=== PATIENT | male | born 1960 | race African-American/Black ===

== ENCOUNTER 2020-02-22 17:31 | Observation (INO) ==
[2020-02-22 18:02] LABS: Basophils % 0.3 % (0.0-0.8); Eosinophils # 0.2 10*3/uL (0.0-0.87); Eosinophils % 2.3 % (0.00-10.9); Hematocrit 43.6 VOL% (42.0-52.0); Hemoglobin 14.7 GM/DL (14.0-18.0); Immature Granulocytes % 0.2 %; Immature Granulocytes Absolute 0.02 #; Lymphocytes # 4.6 10*3/uL (1.4-4.0); Lymphocytes % 50.4 % (21.2-54.2); Mean Corpuscular HGB Conc 33.7 GM/DL (32-36); Mean Platelet Volume 9.7 FL (9.6-12.0); Monocytes # 0.8 10*3/uL (0.11-0.8); Monocytes % 8.9 % (1.7-12.7); Neutrophils % 37.9 % (38.7-73.9); Platelet Count 308 T/CUMM (130-400); Red Blood Count 5.01 MC/CUMM (3.8-5.5); Red Cell Distribution Width 13.3 % (9.3-17.3)
[2020-02-22] MEDS ORDERED: ASPIRIN 325 MG TABLET PO STA (18:05)
[2020-02-22 18:18] LABS: Eosinophils 6 % (0-10); Lymphocytes 59 % (20-55); PT Patient Result 10.5 SECS (9.8-11.9); Platelet Estimate Normal; Total Cells Counted 100
[2020-02-22 18:19] LABS: Atypical Lymphocytes SLIGHT
[2020-02-22 18:25] LABS: Alanine Aminotransferase 97 U/L (16-61); Albumin 3.9 G/DL (3.4-5.0); Alkaline Phosphatase 106 U/L (45-117); Aspartate Amino Transferase 77 U/L (0-37); Bilirubin,Total < 0.39 MG/DL (0.2-1.0); Blood Urea Nitrogen 12 MG/DL (7-18); Calcium 9.4 MG/DL (8.5-10.1); Carbon Dioxide 28 MMOL/L (21-32); Chloride 106 MMOL/L (98-107); Estimated Glom Filtration Rate 92 ML/MIN; Glucose 105 MG/DL (74-106); Osmolality,Calculated 278.4 MOS/KG (273-304); Potassium 3.3 MMOL/L (3.5-5.1); Sodium 140 MMOL/L (136-145); Total Protein 7.9 G/DL (6.4-8.3)
[2020-02-22] MEDS ORDERED: ENOXAPARIN 80 MG/0.8 ML SYRINGE SUBCUT STA (18:43)
[2020-02-22] MEDS ORDERED: MORPHINE 4 MG/1 ML VIAL IV PRN (18:54)
[2020-02-22] MEDS ORDERED: ONDANSETRON 4 MG/2 ML VIAL IV PRN (18:54)
[2020-02-22] MEDS ORDERED: DEXTROSE 50% 25 GM/50 ML VIAL IV PRN (18:54)
[2020-02-22] MEDS ORDERED: GLUCAGON 1 MG VIAL IM PRN (18:54)
[2020-02-22] MEDS ORDERED: ZALEPLON 5 MG CAPSULE PO PRN (18:54)
[2020-02-22] MEDS ORDERED: POTASSIUM CHLORIDE 20 MEQ TABLET PO STA (19:04)
[2020-02-22] MEDS ORDERED: DEXTROSE 50% 25 GM/50 ML SYRINGE IV PRN (19:12)
[2020-02-23 00:43] LABS: Basophils % 0.4 % (0.0-0.8); Eosinophils # 0.1 10*3/uL (0.0-0.87); Eosinophils % 1.3 % (0.00-10.9); Hematocrit 41.2 VOL% (42.0-52.0); Hemoglobin 14.1 GM/DL (14.0-18.0); Immature Granulocytes % 0.3 %; Immature Granulocytes Absolute 0.02 #; Lymphocytes # 2.3 10*3/uL (1.4-4.0); Lymphocytes % 32.3 % (21.2-54.2); Mean Corpuscular HGB Conc 34.2 GM/DL (32-36); Mean Corpuscular Volume 86.9 FL (87-102); Mean Platelet Volume 9.6 FL (9.6-12.0); Monocytes # 0.4 10*3/uL (0.11-0.8); Monocytes % 5.8 % (1.7-12.7); Neutrophils % 59.9 % (38.7-73.9); Platelet Count 290 T/CUMM (130-400); Red Blood Count 4.74 MC/CUMM (3.8-5.5); Red Cell Distribution Width 13.3 % (9.3-17.3); White Blood Count 7.1 T/CUMM (4-12)
[2020-02-23 01:01] LABS: Albumin 3.5 G/DL (3.4-5.0); Bilirubin,Total 0.6 MG/DL (0.2-1.0); Osmolality,Calculated 282.4 MOS/KG (273-304); Potassium 3.9 MMOL/L (3.5-5.1); Risk Ratio 6.33; Total Protein 7.1 G/DL (6.4-8.3); VLDL Cholesterol 72.2 MG/DL
[2020-02-23] MEDS: NITROGLYCERIN 2% OINT 1 INCH/GM PACK TOP SCH ×4 (01:24→17:29)
[2020-02-23] MEDS: ENOXAPARIN 100 MG/ML SYRINGE SUBCUT SCH ×2 (06:44→18:12)
[2020-02-23 08:18] LABS: Hepatitis B Core IgM Quant 0.06 Index; Hepatitis B Surface Ag Quant < 0.10 Index; Hepatitis B Surface Ag Result Negative (Negative); Hepatitis C Virus Ab Quant < 0.02 Index; Hepatitis C Virus Ab Result Negative (Negative)
[2020-02-23] MEDS ORDERED: ASPIRIN EC 325 MG TABLET PO SCH (09:00)
[2020-02-23] MEDS: ACETAMINOPHEN 325 MG TABLET PO PRN (09:30)
[2020-02-23] MEDS: TAMSULOSIN 0.4 MG CAPSULE PO SCH (09:31)
[2020-02-23] MEDS: PANTOPRAZOLE 40 MG TABLET PO SCH (09:31)
[2020-02-23] MEDS ORDERED: POTASSIUM CHLORIDE RIDER 10 MEQ in PREMIX 1 EACH IV PRN (12:34)
[2020-02-23] MEDS ORDERED: MAGNESIUM SULF RIDER 2 GM in PREMIX 1 EACH IV PRN (12:34)
[2020-02-23] MEDS: carvediloL 3.125 MG TABLET PO SCH (17:26)
[2020-02-23] MEDS: ROSUVASTATIN 20 MG TABLET PO SCH (22:06)
[2020-02-24 00:23] LABS: Barbiturates Screen,Urine Negative (Negative); Opiate Screen,Urine Negative (Negative); Phencyclidine Screen,Urine Negative (Negative)
[2020-02-24 00:24] LABS: Benzodiazepines Screen,Urine Negative (Negative); Cannabinoid Screen,Urine Positive (Negative)
[2020-02-24] MEDS: ACETAMINOPHEN 325 MG TABLET PO PRN (01:33)
[2020-02-24] MEDS: NITROGLYCERIN 2% OINT 1 INCH/GM PACK TOP SCH ×5 (01:33→23:15)
[2020-02-24] MEDS ORDERED: diphenhydrAMINE CAP 25 MG CAPSULE PO ONE (06:00)
[2020-02-24] MEDS ORDERED: DIAZEPAM 5 MG TABLET PO ONE (06:00)
[2020-02-24 06:45] LABS: Basophils # 0.1 10*3/uL (0.0-0.2); Basophils % 0.8 % (0.0-0.8); Eosinophils # 0.2 10*3/uL (0.0-0.87); Eosinophils % 3.6 % (0.00-10.9); Hematocrit 42.2 VOL% (42.0-52.0); Hemoglobin 14.3 GM/DL (14.0-18.0); Immature Granulocytes % 0.3 %; Immature Granulocytes Absolute 0.02 #; Lymphocytes # 2.9 10*3/uL (1.4-4.0); Lymphocytes % 45.3 % (21.2-54.2); Mean Corpuscular HGB Conc 33.9 GM/DL (32-36); Mean Corpuscular Volume 87.6 FL (87-102); Mean Platelet Volume 10.2 FL (9.6-12.0); Monocytes # 0.6 10*3/uL (0.11-0.8); Platelet Count 294 T/CUMM (130-400); Red Blood Count 4.82 MC/CUMM (3.8-5.5); Red Cell Distribution Width 13.6 % (9.3-17.3); White Blood Count 6.3 T/CUMM (4-12)
[2020-02-24 06:58] LABS: Albumin 3.4 G/DL (3.4-5.0); Bilirubin,Direct 0.1 MG/DL (0.0-0.20); Bilirubin,Indirect 0.4 MG/DL (0.0-1.0); Bilirubin,Total 0.5 MG/DL (0.2-1.0); Calcium 8.8 MG/DL (8.5-10.1); Osmolality,Calculated 279.3 MOS/KG (273-304); Potassium 3.8 MMOL/L (3.5-5.1); Total Protein 7.1 G/DL (6.4-8.3)
[2020-02-24] MEDS: SODIUM CHLORIDE 0.45% 1,000 ML IV SCH ×3 (07:44→23:05)
[2020-02-24] MEDS: ENOXAPARIN 100 MG/ML SYRINGE SUBCUT SCH (07:47)
[2020-02-24] MEDS: carvediloL 3.125 MG TABLET PO SCH (07:48)
[2020-02-24] MEDS: PANTOPRAZOLE 40 MG TABLET PO SCH ×2 (07:48→09:51)
[2020-02-24] MEDS: TAMSULOSIN 0.4 MG CAPSULE PO SCH ×2 (07:48→09:51)
[2020-02-24] MEDS ORDERED: LIDOCAINE 1% 20 ML VIAL ONE (08:37)
[2020-02-24] MEDS ORDERED: NITROGLYCERIN DRIP 50 MG/250 ML BOTTLE IV ONE (08:41)
[2020-02-24] MEDS ORDERED: HYDROmorphone 2 MG/1 ML VIAL ONE (08:41)
[2020-02-24] MEDS ORDERED: MIDAZOLAM 2 MG/2 ML VIAL ONE (08:42)
[2020-02-24] MEDS ORDERED: VERAPAMIL 5 MG/2 ML VIAL ONE (08:42)
[2020-02-24] MEDS ORDERED: ASPIRIN CHEW 81 MG TABLET PO ONE (08:55)
[2020-02-24] MEDS ORDERED: TIROFIBAN 5,000 MCG/100 ML PREMIX IV ONE (09:07)
[2020-02-24] MEDS ORDERED: TIROFIBAN 5,000 MCG/100 ML PREMIX IV SCH (09:13)
[2020-02-24] MEDS ORDERED: PRASUGREL 10 MG TABLET ONE (09:36)
[2020-02-24] MEDS: carvediloL 6.25 MG TABLET PO SCH ×2 (09:51→21:19)
[2020-02-24 10:21] LABS: Troponin I 0.072 NG/ML (0.00-0.045)
[2020-02-24] MEDS: ROSUVASTATIN 20 MG TABLET PO SCH (21:19)
[2020-02-25] MEDS: NITROGLYCERIN 2% OINT 1 INCH/GM PACK TOP SCH (05:23)
[2020-02-25 06:17] LABS: Basophils % 0.7 % (0.0-0.8); Eosinophils # 0.2 10*3/uL (0.0-0.87); Eosinophils % 3.1 % (0.00-10.9); Hematocrit 41.6 VOL% (42.0-52.0); Hemoglobin 14.1 GM/DL (14.0-18.0); Immature Granulocytes % 0.5 %; Immature Granulocytes Absolute 0.03 #; Lymphocytes # 1.9 10*3/uL (1.4-4.0); Lymphocytes % 31.8 % (21.2-54.2); Mean Corpuscular HGB Conc 33.9 GM/DL (32-36); Mean Platelet Volume 9.9 FL (9.6-12.0); Monocytes # 0.6 10*3/uL (0.11-0.8); Monocytes % 10.3 % (1.7-12.7); Neutrophils % 53.6 % (38.7-73.9); Platelet Count 294 T/CUMM (130-400); Red Blood Count 4.78 MC/CUMM (3.8-5.5); Red Cell Distribution Width 13.4 % (9.3-17.3); White Blood Count 5.9 T/CUMM (4-12)
[2020-02-25 06:29] LABS: Calcium 8.9 MG/DL (8.5-10.1); Osmolality,Calculated 277.4 MOS/KG (273-304); Potassium 3.9 MMOL/L (3.5-5.1)
[2020-02-25 06:34] LABS: CKMB % 2.1 %
[2020-02-25 06:36] LABS: Troponin I 3.42 NG/ML (0.00-0.045)
[2020-02-25 06:46] LABS: Albumin 3.5 G/DL (3.4-5.0); Bilirubin,Direct 0.1 MG/DL (0.0-0.20); Bilirubin,Indirect 0.4 MG/DL (0.0-1.0); Bilirubin,Total 0.5 MG/DL (0.2-1.0); Total Protein 7.1 G/DL (6.4-8.3)
[2020-02-25] MEDS: SODIUM CHLORIDE 0.45% 1,000 ML IV SCH (08:25)
[2020-02-25] MEDS: carvediloL 6.25 MG TABLET PO SCH (08:56)
[2020-02-25] MEDS: TAMSULOSIN 0.4 MG CAPSULE PO SCH (08:56)
[2020-02-25] MEDS: PANTOPRAZOLE 40 MG TABLET PO SCH (08:56)
[2020-02-25] MEDS ORDERED: ASPIRIN EC 81 MG TABLET PO SCH (09:00)
[2020-02-25] MEDS ORDERED: PRASUGREL 10 MG TABLET PO SCH (09:00)
[2020-02-25 12:16] VITALS: BP 128/78
== END 2020-02-25 12:14 | disposition home or self-care (01) ==
LOC: N.ED 17:31 → N.EDINP 17:31 → SUATTDRO 18:54 → N.EDINP 20:27 → N.TELES 23:29
PROVIDERS: ADMIT Internal Medicine; ATTEND Internal Medicine Geriatric Medicine